=== PATIENT | male | born 1985 | race Two or more races ===

== ENCOUNTER → 2024-09-17 | Day surgery (SDC) | payer MEDICAID ==
[2024-09-15 09:21] LABS: Urine Bacteria None Seen /hpf (None Seen)
[2024-09-15 09:38] LABS: Basophils # (auto) 0.1 10 ^3/uL (0-0.2); Basophils % (auto) 0.7 % (0.0-2.0); Eosinophils # (auto) 0.2 10 ^3/uL (0-0.8); Eosinophils % (auto) 2.4 % (0.0-7.0); Hemoglobin 14.6 g/dL (13.5-17.5); Lymphocytes # (auto) 1.2 10 ^3/uL (0.4-5.4); Lymphocytes % (auto) 17.5 % (10.0-50.0); Mean Corpuscular Hemoglobin 29.8 pg (28.0-32.0); Mean Corpuscular Hgb Conc. 34.9 g/dL (32.0-36.0); Mean Corpuscular Volume 85.4 fL (80.0-100.0); Monocytes # (auto) 0.8 10 ^3/uL (0-1.3); Monocytes % (auto) 11.1 % (0.0-12.0); Neutrophils # (auto) 4.7 10 ^3/uL (1.6-8.6); Neutrophils % (auto) 68.3 % (37.0-80.0); Platelet Count (auto) 193 10^3/uL (140-450); Red Blood Cells 4.92 10^6/uL (4.5-5.90); Red Cell Distribution Width 13.2 % (11.8-14.3); White Blood Cell 6.9 10^3/uL (4.4-10.8)
[2024-09-15 09:40] LABS: Urine Blood Negative /uL (Negative); Urine Clarity Clear (Clear); Urine Color Yellow (Yellow); Urine Protein, UAD Negative (Negative); Urine Specific Gravity 1.031 (1.001-1.035); Urine Squamous Epithelial Cell None Seen /hpf (<5); Urine Urobilinogen Normal (Negative); Urine WBC <1 /hpf (0 - 3)
[2024-09-15 09:53] LABS: Alanine Aminotransferase 15 U/L (7-40); Albumin 4.6 g/dL (3.2-4.8); Alkaline Phosphatase 66 U/L (46-116); Anion Gap 6 (5-15); Aspartate Aminotransferase 17 U/L (13-40); BUN/Creatinine Ratio 16.9 (10.0-20.0); Blood Urea Nitrogen 15 mg/dL (9-23); Calcium 9.9 mg/dL (8.7-10.4); Carbon Dioxide 30 mmol/L (20-31); Chloride 104 mmol/L (98-107); Glucose 98 mg/dL (74-106); Potassium 4.4 mmol/L (3.5-5.1); Sodium 140 mmol/L (136-145)
[2024-09-15 09:54] LABS: Bilirubin, Total 0.5 mg/dL (0.2-1.0); Total Protein 7.2 g/dL (5.7-8.2)
[2024-09-15 09:57] LABS: INR 1.04 (0.9-1.15); Partial Thromboplastin Time 27.1 SEC (24.5-34.5)
[~2024-09-17] VITALS: Ht 170.2 cm; Wt 95.3 kg
[~2024-09-17] MED LIST: ACETAMINOPHEN IV 1000 MG/100ML (10MG/ML) IV PRN; BACITRACIN TOP OINT 1 UD PKG TOP ONE; DexAMETHasone SOD PHOS 10MG/1ML VIAL INJ ONE; HYDROmorphone HCL 2 MG/ML VL/or syr IV PRN; MEPERIDINE HCL (25 MG/ML) 1ML VIAL IV PRN; MEPERIDINE HCL (25 MG/ML) 1ML VIAL ONE; ONDANSETRON HCL 4 MG/2 ML VIAL IV ONE; ONDANSETRON HCL 4 MG/2 ML VIAL ONE; ceFAZolin 2 GM/D5W100ml 100 ML IV ONE; fentaNYL CITRATE 100 MCG/2 ML VL ONE
[2024-09-17] MEDS: LIDOCAINE W/ EPINEPHRINE 1% 20ML VIAL ONE (13:24)
--- NOTE | 2024-09-17 13:35 | DVHDS2 ---
New Physician D'charge PN Admitting Diagnosis Admitting Diagnosis Desired infertility Discharge Diagnosis Same Operations or Procedures Vasectomy Reason(s) For Hospitalization Surgery Treatment Plan Discharge Condition of Discharge Good Disposition Home Discharge Instructions Diet: Regular Activity: Light activity Activity comment: Scrotal support and no heavy lifting x1 week Medications: Given Follow Up Care Follow Up/Referral: Sperm count in tumor Discharge Statement: "Patient was advised to return to the ER or call 911 if any headaches, dizziness, shortness of breath, chest pain, abdominal pain, bleeding, fevers, or worsening of medical condition. Patient was counseled about treatment plan, medications, possible side effects, patientverbalized understanding. All questions were answered to the best of my ability. This discharge took greater then 30 minutes in planning, reviewing documentation, counseling the patient, and discussing with other team members." OSITO AHUMADA MD Sep 17, 2024 13:35
[2024-09-17 13:37] VITALS: PULSE 89; RESP 19; TEMP 98; O2SAT 100
[2024-09-17 13:52] VITALS: PULSE 95; RESP 17; O2SAT 100
[2024-09-17 13:55] VITALS: BP 136/93; PULSE 95; RESP 14; O2SAT 96
== END | disposition home or self-care (01) ==
LOC: SUR 09:10
PROVIDERS: ATTEND Urology
DX: Z30.2 Encounter for sterilization (principal); F11.91 Opioid use, unspecified, in remission; Z79.899 Other long term (current) drug therapy
CPT/HCPCS: 36415; 55250; 80053; 81001; 85025; 85610; 85730; 87086; 88305; J1100; J2175; J2405; J3010